=== PATIENT | female | born 1960 | race African-American/Black ===

== ENCOUNTER 2018-11-26 17:12 | Emergency (ER) | payer OTHER ==
[~2018-11-26] VITALS: Ht 165.1 cm; Wt 83.9 kg
[2018-11-26] MEDS ORDERED: MOBIC15 MG PO (19:23)
[2018-11-26] MEDS ORDERED: CYCLOBENZAPRINE5 MG PO (19:23)
[2018-11-26 20:21] VITALS: BP 127/85
--- NOTE | 2018-11-28 09:10 | EKG ---
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
== END 2018-11-26 20:27 | disposition home or self-care (01) ==
LOC: ER 17:12
DX: S16.1XXA Strain of muscle, fascia and tendon at neck level, initial encounter (principal); X58.XXXA Exposure to other specified factors, initial encounter; Y92.89 Other specified places as the place of occurrence of the external cause; Y93.89 Activity, other specified; Y99.8 Other external cause status